=== PATIENT | female | born 1965 | race Caucasian/White ===

== ENCOUNTER → 2018-07-25 | Outpatient (CLI) | payer BC, OTHER ==
[~2018-07-25] MED LIST: ACET-2151 PO; ACHYD1T PO; LSNP10T PO; MTF500T PO; PRV20T PO
--- NOTE | 2018-07-25 17:28 | Diagnostic Imaging Report ---
INDICATION: Screening The current study was also evaluated with a Computer Aided Detection (CAD) system. 3-D Tomographic imaging was also performed. COMPARISON with 11/11/2015, 07/12/2014 and 04/13/2012. FINDINGS: The fibroglandular tissue is heterogeneously dense bilaterally. There are scattered benign type calcifications. There is no dominant mass, spiculated lesion or suspicious calcification identified. The skin, nipples and axillae are unremarkable. IMPRESSION: Category 2 benign. ACR BI-RADS Category 2: Benign findings. Result letter will be mailed to the patient. Note: At least 10% of breast cancer is not imaged by mammography. Dictated by: Dictated on workstation # [id number]
== END ==
LOC: RAD 14:56
PROVIDERS: ATTEND Family Medicine
DX: Z12.31 Encounter for screening mammogram for malignant neoplasm of breast (principal)
CPT/HCPCS: 77067

== ENCOUNTER → 2019-05-24 | Outpatient (CLI) | payer OTHER ==
--- NOTE | 2019-05-24 11:21 | Diagnostic Imaging Report ---
PROCEDURE: US Hepatic (Liver). TECHNIQUE: Multiple real-time grayscale images were obtained over the right upper quadrant in various projections. INDICATION: Abdominal pain, diarrhea. COMPARISON: None available. FINDINGS: The liver is enlarged measuring 25 cm in length. It has diffuse increased echogenicity, indicative of hepatic steatosis. No nodularity to the liver surface is appreciated. No focal hepatic lesion is seen, though assessment is mildly limited due to poor sound penetration from hepatic steatosis. Gallbladder is filled with a small amount of layering sludge present. No shadowing gallstones, pericholecystic fluid, or gallbladder wall thickening. The common bile duct measures up to 0.9 cm in diameter. No intrahepatic biliary dilation. The visualized portions of the pancreas are normal. Portions of the head and tail are obscured by overlying bowel gas. The right kidney is normal in size. No hydronephrosis, shadowing calculi, or suspicious mass lesion. IMPRESSION: 1. Hepatomegaly with diffuse hepatic steatosis. 2. A small amount of gallbladder sludge is present. No features of acute cholecystitis. 3. The common bile duct is upper limits of normal in size which could be physiologic for this patient. If patient's laboratory values are suspicious for biliary obstruction, consider MRCP for further characterization. Dictated by: Dictated on workstation # [id number]
== END ==
LOC: RAD 08:05
PROVIDERS: ATTEND Family Medicine
DX: K76.0 Fatty (change of) liver, not elsewhere classified (principal); K82.8 Other specified diseases of gallbladder; R19.7 Diarrhea, unspecified
CPT/HCPCS: 76705

== ENCOUNTER → 2019-06-04 | Outpatient (CLI) | payer OTHER ==
[~2019-06-04] MED LIST changes: +CATHETER FLUSH 10 ML SYR IV PRN; +CNC1KV IM; +FERR-84 PO; +GLIP5TAB13 PO; +INSU100V5 SQ; +LISI10TA2 PO; +METF-399 PO; +PRAV40TA2 PO; +SIMV20TA26 PO
--- NOTE | 2019-06-04 14:42 | Diagnostic Imaging Report ---
INDICATION: Abdominal pain, biliary sludge.. FINDINGS: The patient was administered 5.22 mCi of Tc 99m Choletec and sequential imaging was performed over the right upper abdomen. There is progressive, homogeneous accumulation of radiotracer within the liver parenchyma. There is filling of the bile ducts and subsequent filling of the gallbladder. There is progressive clearance of activity from the liver parenchyma and accumulation of radiotracer within loops of small bowel. The patient was then administered a fatty meal, utilizing 8 ounces of Ensure. The gallbladder ejection fraction was calculated to be approximately less than 1%. (Normal values post fatty meal stimulation are 33% or greater.) IMPRESSION: 1. Hepatobiliary scan demonstrates a patent biliary tree. 2. Abnormal gallbladder ejection fraction. There is essentially no emptying of the gallbladder post stimulation. Dictated by: Dictated on workstation # [id number]
== END ==
LOC: CARD 12:14
PROVIDERS: ATTEND Family Medicine
DX: K83.8 Other specified diseases of biliary tract (principal); R10.9 Unspecified abdominal pain
CPT/HCPCS: 78227

== ENCOUNTER 2019-06-08 06:28 | Outpatient (CLI) | payer OTHER ==
[~2019-06-08] VITALS: Ht 154 cm; Wt 130.0 kg
[~2019-06-08 06:28] MED LIST changes: -CATHETER FLUSH 10 ML SYR IV PRN; -CNC1KV IM; -FERR-84 PO; -GLIP5TAB13 PO; -INSU100V5 SQ; -LISI10TA2 PO; -METF-399 PO; -PRAV40TA2 PO; -SIMV20TA26 PO
[2019-06-08] MEDS ORDERED: FERR-84 PO (12:28)
[2019-06-08] MEDS ORDERED: INSU100V5 SQ (12:28)
[2019-06-08] MEDS ORDERED: METF-399 PO (12:28)
[2019-06-08] MEDS ORDERED: SIMV20TA26 PO (12:28)
[2019-06-08] MEDS ORDERED: LISI10TA2 PO (12:28)
[2019-06-08] MEDS ORDERED: PRAV40TA2 PO (12:28)
[2019-06-08] MEDS ORDERED: GLIP5TAB13 PO (12:28)
[2019-06-08] MEDS ORDERED: CNC1KV IM (12:28)
== END 2019-06-08 12:38 | disposition home or self-care (01) ==
LOC: PREOP 06:28
PROVIDERS: ATTEND Surgery
DX: Z01.818 Encounter for other preprocedural examination (principal)

== ENCOUNTER 2019-06-21 09:05 | Day surgery (SDC) | payer OTHER ==
--- NOTE | 2019-06-07 06:54 | HISTORY AND PHYSICAL ---
DATE OF SERVICE: PROCEDURE DATE: 06/14/2019. ATTENDING PRIMARY CARE PHYSICIAN: Dr. Skye Byrd. HISTORY OF PRESENT ILLNESS: The patient is a 54-year-old female, who was referred over to us for abdominal pain as well as nausea and vomiting. The patient reports this has been going on for approximately a year and believes that this has become progressively worse. She reports that after eating she does usually become nauseous and at times will even throw up. She does report a dull ache to sharp pain in the epigastric region. She does report occasional episodes of heartburn and reflux. She reports she does feel like at times the pain does go through to her back. She also reports episodes of diarrhea. She reports that her symptoms usually occur with most foods and has not found any specific foods that trigger her symptoms. She was seen by her primary care physician where an ultrasound was performed, which did show a small amount of a gallbladder sludge; however, no acute cholecystitis. She then underwent a HIDA scan, which did show a gallbladder ejection fraction of 1% consistent with a biliary dyskinesia. PAST MEDICAL HISTORY: Morbid obesity, type 2 diabetes, hypertension, hypercholesterolemia, iron deficiency anemia and vitamin B12 deficiency. PAST SURGICAL HISTORY: in 1993, laparoscopic Olivia-en-Y gastric bypass around 2005 and D and C around 2014. ALLERGIES: PENICILLIN. MEDICATIONS: Glipizide 10 mg, metformin 1000 mg, lisinopril 10 mg, pravastatin 40 mg, simvastatin 20 mg, ferrous sulfate 325 mg, Levemir 20 units and B12 injection. SOCIAL HISTORY: Previous smoker, half pack per day for 16 years, quit in 2000. Negative for alcohol. FAMILY HISTORY: Mother, uterine cancer diagnosed around 63 years of age, diabetes and hypertension. Father hypertension. Brother x2 stroke and hypertension. Child, hypertension. Paternal grandmother, stroke. Maternal grandmother, myocardial infarction. REVIEW OF SYSTEMS: A well-nourished female, in no acute distress. She is not experiencing any shortness of breath or difficulty breathing. No chest pain, palpitations or diaphoresis. She does report episodes of nausea and vomiting as well as epigastric abdominal pain. She does report episodes of diarrhea, but no constipation. No red blood per rectum. No dark tarry stools. No fever or chills. No recent inadvertent weight loss. All other review of systems are negative. PHYSICAL EXAMINATION: VITAL SIGNS: Blood pressure is 169/87. Current weight is 287.3 pounds at 5 feet 2 inches. CHEST: Clear. Good breath sounds bilaterally. HEART: Regular, no murmurs. EXTREMITIES: No lower extremity edema. Negative Homans sign. HEENT: No scleral icterus. NECK: No cervical lymphadenopathy. ABDOMEN: Soft and nondistended. There is some tenderness with deep palpation in the epigastric region. No palpable masses. No organomegaly. SKIN: Warm, dry and pink. NEUROLOGIC: Awake, alert and oriented x3. ASSESSMENT AND PLAN: A 54-year-old female with a symptomatic biliary dyskinesia. At this time, I will recommend proceeding with a laparoscopic cholecystectomy. The risks and benefits of the procedure as well as the procedure and home care instructions were explained to the patient. The patient verbalized understanding of the instructions and agrees to this plan. At this time, I will proceed with scheduling the patient for a laparoscopic cholecystectomy. Job ID: [id number] DocumentID: [id number] Dictated Date: 06/06/2019 09:07:28 Marine Oiler Date: 06/06/2019 09:21:28 Dictated By: MEGHA LOYA APRN
[~2019-06-21] VITALS: Ht 154 cm; Wt 130.0 kg
[2019-06-21] VITALS (12 sets, daily range): BP systolic 142–190; BP diastolic 67–99
[~2019-06-21 09:05] MED LIST changes: +CNC1KV IM; +FERR-84 PO; +GLIP5TAB13 PO; +INSU100V5 SQ; +LISI10TA2 PO; +METF-399 PO; +PRAV40TA2 PO; +SIMV20TA26 PO
--- NOTE | 2019-06-21 09:26 | Progress Note-Pre Operative ---
Pre-Operative Progress Note H&P Reviewed The H&P was reviewed, patient examined and no changes noted. Date Seen by Provider: Jun 21, 2019 Time Seen by Provider: 09:25 Date H&P Reviewed: Jun 21, 2019 Time H&P Reviewed: 09:20 Pre-Operative Diagnosis: Symptomatic Biliary Dyskinesia MEGHA LOYA APRN Jun 21, 2019 09:26
[2019-06-21] MEDS ORDERED: HYDR-4227 PO (09:28)
--- NOTE | 2019-06-21 09:29 | Discharge Inst-Surgical ---
D/C Lap Instructions-KIDO Reconcile Patient Problems Problems Reviewed?: Yes New, Converted, or Re-Newed RX: RX on Chart Follow Up Appt in 2 weeks Activity as tolerated No driving for 24 hours No driving while on pain medications Incentive Spirometry use every 2 hours while awake Regular Diet Symptoms to Report: Fever over 101 degree F, Nausea/Vomiting Infection Signs and Symptoms to report: Increased redness, Foul odor of wound, Increased drainage Bathing instructions: May shower Operative Area Clean/Dry; Keep incision clean/dry If any problems/questions: Contact your physician or go to Emergency Room MEGHA LOYA APRN Jun 21, 2019 09:29
[2019-06-21] MEDS ORDERED: morphine INJ 10 MG/ML 1ML (SYR OR VIAL) IVP PRN (09:30)
[2019-06-21] MEDS ORDERED: oxyCODONE/APAP 5/325MG (PERCOCET 5) TABLET PO PRN (09:30)
[2019-06-21] MEDS ORDERED: ACETAMINOPHEN 325 MG TABLET PO PRN (09:30)
[2019-06-21] MEDS ORDERED: CLINDAMYCIN 600 MG/50 ML IVPB 50 ML IV ONE (09:30)
[2019-06-21] MEDS ORDERED: ONDANSETRON 4 MG/2 ML (SDV) Z0FRAN IVP PRN (09:30)
[2019-06-21 09:58] LABS: BASOPHILS % (AUTO) 1 % (0-10); EOSINOPHILS # (AUTO) 0.2 10^3/uL (0.0-0.3); EOSINOPHILS % (AUTO) 2 % (0-10); HEMATOCRIT 38 % (35-52); LYMPHOCYTES # (AUTO) 2.3 X 10^3 (1.0-4.0); LYMPHOCYTES % (AUTO) 29 % (12-44); MEAN CORPUSCULAR HEMOGLOBIN 26 PG (25-34); MEAN CORPUSCULAR HGB CONC 32 G/DL (32-36); MEAN CORPUSCULAR VOLUME 82 FL (80-99); MEAN PLATELET VOLUME 11.6 FL (7.4-10.4); MONOCYTES # (AUTO) 0.5 X 10^3 (0.0-1.0); MONOCYTES % (AUTO) 7 % (0-12); NEUTROPHILS # (AUTO) 4.9 X 10^3 (1.8-7.8); NEUTROPHILS % (AUTO) 62 % (42-75); PLATELET COUNT 283 10^3/uL (130-400); WHITE BLOOD COUNT 7.8 10^3/uL (4.3-11.0)
[2019-06-21] MEDS ORDERED: SCOPOLAMINE 1.5 MG (TRANSDERM-SCOP) PATCH TOP NR (10:00)
[2019-06-21] MEDS ORDERED: ONDANSETRON 4 MG/2 ML (SDV) Z0FRAN IV NR (10:00)
[2019-06-21] MEDS ORDERED: FAMOTIDINE 20MG/2ML IV (PEPCID) IV NR (10:00)
[2019-06-21] MEDS ORDERED: BUP/EPI 0.5% 1:200,000 (SENSORCAINE) 30 ML VIAL ONE (10:03)
[2019-06-21] MEDS: LACTATED RINGERS 1,000 ML IV PRN ×2 (10:12→12:20)
[2019-06-21] MEDS ORDERED: MIDAZOLAM 2 MG/2 ML (VERSED) VIAL ONE (10:46)
[2019-06-21] MEDS ORDERED: fentaNYL INJECTION 100 MCG/2 ML AMP ONE ×3 (10:46→12:35)
[2019-06-21] MEDS ORDERED: proPOfol 200 MG/20 ML (DIPRIVAN) VIAL IV ONE (12:06)
[2019-06-21] MEDS ORDERED: GLYCOPYRROLATE 0.2 MG/ML (ROBINUL) 2 ML VIAL ONE (12:06)
[2019-06-21] MEDS ORDERED: LIDOCAINE PF 2% 5 ML (XYLOCAINE) VIAL ONE (12:06)
[2019-06-21] MEDS ORDERED: SEVOFLURANE (ULTANE) 15 ML INHAL SOLN ONE ×4 (12:06)
[2019-06-21] MEDS ORDERED: ESMOLOL 100 MG/10 ML (BREVIBLOC) VIAL ONE (12:06)
[2019-06-21] MEDS ORDERED: SUCCINYLCHOLINE INJ 100 MG/5 ML SYR ONE (12:06)
[2019-06-21] MEDS ORDERED: ROCURONIUM 10 MG/ML 5 ML SYRINGE IV ONE (12:06)
[2019-06-21] MEDS ORDERED: ONDANSETRON 4 MG/2 ML (SDV) Z0FRAN ONE (12:06)
[2019-06-21] MEDS ORDERED: NEOSTIGMINE 3 MG/3 ML VIAL ONE (12:06)
--- NOTE | 2019-06-21 12:33 | Progress Note-Post Operative ---
Post-Operative Progess Note Surgeon (s)/Applications Programmer Analyst (s) Surgeon DEMOND LAM MD Applications Programmer Analyst: poonam gurrola HOUSING GRANT ANALYST Pre-Operative Diagnosis Symptomatic Biliary Dyskinesia Post-Operative Diagnosis symptomatic chronic calculous cholecystitis. Procedure & Operative Findings Date of Procedure 06/21/19 Procedure Performed/Findings laparoscopic cholecystectomy. Anesthesia Type get Estimated Blood Loss Estimated blood loss (mL): minimal Specimens/Packing Specimens Removed gallbladder DEMOND LAM MD Jun 21, 2019 12:33
[2019-06-21] MEDS ORDERED: HYDROmorphone 2 MG/ML VIAL (DILAUDID) ONE (12:50)
--- NOTE | 2019-06-21 12:56 | Anesthesia-General Post-Op ---
General Patient Condition Mental Status/LOC: Same as Preop Cardiovascular: Satisfactory Nausea/Vomiting: Present (TREATED IN PACU) Respiratory: Satisfactory Pain: Controlled Complications: Absent Post Op Complications Complications None Follow Up Care/Instructions Patient Instructions None needed. Anesthesia/Patient Condition Patient Condition Patient is doing well, no complaints, stable vital signs, no apparent adverse anesthesia problems. No complications reported per nursing. GENNY OZUNA CRNA Jun 21, 2019 12:56
[2019-06-21] MEDS ORDERED: fentaNYL INJECTION 100 MCG/2 ML AMP IVP ONE (13:00)
[2019-06-21] MEDS ORDERED: HYDROmorphone 2 MG/ML VIAL (DILAUDID) IV ONE (13:00)
[2019-06-21] MEDS ORDERED: morphine INJ 10 MG/ML 1ML (SYR OR VIAL) IVP ONE (13:00)
[2019-06-21] MEDS: ONDANSETRON 4 MG/2 ML (SDV) Z0FRAN IVP PRN ×2 (13:01→13:21)
[2019-06-21] MEDS ORDERED: PROMETHAZINE INJ 25 MG/ML (PHENERGAN) AMP ONE (13:28)
--- NOTE | 2019-06-21 14:14 | OPERATIVE REPORT ---
DATE OF SERVICE: 06/21/2019 ATTENDING PRIMARY CARE PHYSICIAN: Skye Byrd MD PREOPERATIVE DIAGNOSIS: Symptomatic chronic calculous cholecystitis. POSTOPERATIVE DIAGNOSIS: Symptomatic chronic calculous cholecystitis. PROCEDURE: Laparoscopic cholecystectomy. SURGEON: Dmeond Lam MD GAS MAKER HELPER: Keyur Appiah APRN ANESTHESIA: General endotracheal. ESTIMATED BLOOD LOSS: Minimal. FINDINGS: Hepatomegaly with multiple gallstones and the distended gallbladder as well as chronic gallbladder wall thickening. DISPOSITION: The patient tolerated the procedure well. INDICATIONS: The patient is a 54-year-old female, who has had pain in the right upper abdominal quadrant with nausea and vomiting for greater than 1 year; however, this has become much more significant as well as more severe. An ultrasound was performed, which showed gallbladder sludge versus small stones and she also underwent a HIDA scan, which showed a severely low ejection fraction of 1%. DESCRIPTION OF PROCEDURE: The patient was brought to the operating room, laid supine on the table. After adequate IV pain and sedative medications and general endotracheal intubation, the abdomen was prepped and draped in standard surgical fashion. A 0.5% Marcaine with epinephrine was then used to anesthetize the overlying skin in the left upper abdominal quadrant and a transverse skin incision made using 15 blade. An 0 silk suture was applied to the medial aspect of incision for retraction and a Veress needle inserted with a low opening pressure of 0 mmHg. The abdomen was insufflated to 15 mmHg pressure. The Veress needle removed and a 5 mm XL trocar placed followed by a 5 mm 45-degree angle laparoscope visualizing the peritoneal cavity. A 4-quadrant abdominal exploration was performed. There were some omental adhesions towards the abdominal wall from her previous abdominal surgeries. Under direct visualization, we then proceeded to place a 10 mm supraumbilical port after the skin and peritoneal lining were anesthetized using 0.5% Marcaine with epinephrine and a transverse skin incision made using a 15 blade. In a similar fashion, a right upper abdominal quadrant 5 mm port was placed. A distended gallbladder with chronic gallbladder wall thickening identified. This was initially decompressed with a laparoscopic needle and suction. The patient was then placed in steep reverse Trendelenburg position as well as plane right side up, left side down. The fundus of the gallbladder was then retracted anteriorly and superiorly. The hepatoduodenal ligament was then opened using cautery as well as blunt dissection on the hook instrument. The entire critical view of safety was identified including the cystic duct and artery as the only two structures going to gallbladder, the triangle of Calot as well as the cystic plate behind the proximal gallbladder. A timeout was then taken, and the cystic duct and artery were then clipped proximally, distally and cut with EndoShears. The gallbladder was then dissected off the liver bed using cautery on hook instrument with visualization of good hemostasis as well as no leaking ducts of Luschka. The gallbladder was removed through the 10 mm port site using an EndoCatch bag. The 10 mm port site fascia and peritoneum were then closed under direct visualization using a Ace-Alan device and 0 Vicryl suture. The abdomen was desufflated and remaining ports removed. All skin incisions were closed using 4-0 Monocryl running subcuticular sutures. Wounds were then cleaned and covered with Dermabond. The patient tolerated the procedure well. We will start IV normal pain medication as well as a clear liquid diet. When she is tolerating clears, has good pain control with oral pain medication and is ambulating well, we will discharge her home. She will be instructed to do no heavy lifting or exertion for the next two weeks. Job ID: [id number] DocumentID: [id number] Dictated Date: 06/21/2019 12:37:59 Life Insurance Underwriter Date: 06/21/2019 14:13:12 Dictated By: DEMOND LAM MD
[2019-06-21] MEDS ORDERED: METOCLOPRAMIDE INJ 10 MG/2 ML (REGLAN) ONE (14:37)
[2019-06-21] MEDS ORDERED: METOCLOPRAMIDE INJ 10 MG/2 ML (REGLAN) IVP ONE (14:45)
[2019-06-24] MEDS ORDERED: SCOPOLAMINE PATCH REMOVAL TP SCH (10:00)
== END 2019-06-21 15:15 | disposition home or self-care (01) ==
LOC: SDC 09:05
PROVIDERS: ATTEND Surgery
DX: K80.12 Calculus of gallbladder with acute and chronic cholecystitis without obstruction (principal); Z11.2 Encounter for screening for other bacterial diseases; E11.9 Type 2 diabetes mellitus without complications; I10 Essential (primary) hypertension; E78.00 Pure hypercholesterolemia, unspecified; E78.5 Hyperlipidemia, unspecified; D50.9 Iron deficiency anemia, unspecified; E53.9 Vitamin B deficiency, unspecified; G47.33 Obstructive sleep apnea (adult) (pediatric); E66.01 Morbid (severe) obesity due to excess calories; Z98.84 Bariatric surgery status; Z79.4 Long term (current) use of insulin; Z79.899 Other long term (current) drug therapy; Z87.891 Personal history of nicotine dependence; Z68.43 Body mass index [BMI] 50.0-59.9, adult
CPT/HCPCS: 36415; 82962; 84703; 85025; 87081; 88304; 94664

== ENCOUNTER → 2020-08-19 | Outpatient (CLI) | payer OTHER ==
[~2020-08-19] MED LIST changes: +HYDR-4227 PO; -LISI10TA2 PO; +LISI10TA25 PO
--- NOTE | 2020-08-19 12:50 | Diagnostic Imaging Report ---
INDICATION: Routine screening. Comparison is made with prior mammogram 07/25/2018 and 11/11/2015. 2-D and 3-D bilateral screening mammography was performed with CAD. Scattered fibroglandular densities are identified bilaterally. There are benign appearing calcifications in both breasts. No spiculated mass or malignant appearing microcalcifications are seen. Axillae are unremarkable. IMPRESSION: BI-RADS Category 2 No mammographic features suspicious for malignancy are identified. ACR BI-RADS Category 2: Benign findings. Result letter will be mailed to the patient. Note: At least 10% of breast cancer is not imaged by mammography. Dictated by: Dictated on workstation # [id number]
== END ==
LOC: RAD 09:57
PROVIDERS: ATTEND Family Medicine
DX: Z12.31 Encounter for screening mammogram for malignant neoplasm of breast (principal)
CPT/HCPCS: 77063; 77067

== ENCOUNTER 2021-04-20 05:31 | Outpatient (CLI) | payer OTHER ==
[~2021-04-20] VITALS: Ht 61 cm; Wt 112.0 kg
[2021-04-23] MEDS ORDERED: EMPA25TA PO (15:12)
[2021-04-23] MEDS ORDERED: SITA100T12 PO (15:12)
== END 2021-04-24 16:50 | disposition home or self-care (01) ==
LOC: PREOP 05:31
PROVIDERS: ATTEND Specialist
DX: Z01.818 Encounter for other preprocedural examination (principal)

== ENCOUNTER 2021-04-27 05:59 | Day surgery (SDC) | payer OTHER ==
[~2021-04-27] VITALS: Ht 61 cm; Wt 112.0 kg
[~2021-04-27 05:59] MED LIST changes: +EMPA25TA PO; +SITA100T12 PO
[2021-04-27] MEDS ORDERED: TIMOLOL MALEATE 0.5% 5 ML (TIMOPTIC) BTL OU PRN (06:15)
[2021-04-27] MEDS ORDERED: LIDOCAINE PF 1% 2 ML VIAL IR PRN (06:15)
[2021-04-27] MEDS ORDERED: POVIDONE (BETADINE) OPHTH SOLN 5% 30 ML OP ONE (06:15)
[2021-04-27] MEDS ORDERED: MOXIFLOXACIN OPHTH SOLN 5 MG/ML 0.3 ML SYRINGE OP ONE (06:15)
[2021-04-27 06:20] VITALS: BP 147/71
[2021-04-27] MEDS: TETRACAINE 0.5% OPHTH SOLN 4 ML BTL (SINGLE DOSE ONLY) OU PRN ×4 (06:27→06:43)
[2021-04-27] MEDS: PHENYLEPHRINE 10% OPHTH (NEO-SYN) 5 ML BTL OU SCH ×3 (06:33→06:43)
[2021-04-27] MEDS: TROPICAMIDE 1% OPH SOLN (MYDRIACYL) 15 ML BTL OP SCH ×3 (06:33→06:43)
[2021-04-27] MEDS ORDERED: MIDAZOLAM 2 MG/2 ML (VERSED) VIAL ONE (07:26)
--- NOTE | 2021-04-27 07:29 | Ophthalmologist Pre-Op Note ---
Pre-Operative Progress Note H&P Reviewed The H&P was reviewed, patient examined and no changes noted. Date H&P Reviewed: Apr 27, 2021 Time H&P Reviewed: 07:22 Pre-Op Dx Cataract, Right Eye JAMEL SIMENTAL MD Apr 27, 2021 07:29
--- NOTE | 2021-04-27 07:44 | Ophthalmology Operative Report ---
Cataract removal/placement IOL PREOPERATIVE DIAGNOSIS: Cataract Right Eye POSTOPERATIVE DIAGNOSIS: Cataract Right Eye PROCEDURE: Cataract removal and placement of posterior chamber implant, right eye SURGEON: Thomas Simental ANESTHESIA: Topical with sedation COMPLICATIONS: None ESTIMATED BLOOD LOSS: Minimal DESCRIPTION OF PROCEDURE: After proper informed consent was obtained, the patient, a 55 female, was taken to the Operating Room and the right eye was anesthetized with tetracaine. The right eye was then prepped and draped in the usual manner. A wire lid speculum was placed. A paracentesis was made at the left hand position. Preservative free lidocaine was injected into the anterior chamber followed by viscoelastic. A clear corneal incision was made in the temporal position. A capsulorrhexis was preformed and the central nuclear and cortical material were removed. The posterior capsule was polished and Scot 20.0 AU00T0 IOL was placed into the capsular bag. The residual viscoelastic was aspirated and balanced saline solution was injected into the anterior chamber. Moxifloxacin was injected into the anterior chamber. The wound was checked and found to be water tight. The patient tolerated the procedure well without complications. THOMAS SIMENTAL MD Apr 27, 2021 07:44
[2021-04-27 07:52] VITALS: BP 171/75
[2021-04-27] MEDS ORDERED: acetaZOLAMIDE ER 500 MG CAP (DIAMOX SEQUELS) PO ONE (09:15)
--- NOTE | 2021-04-27 12:44 | Anesthesia-General Post-Op ---
MAC Patient Condition Mental Status/LOC: Same as Preop Cardiovascular: Satisfactory Nausea/Vomiting: Absent Respiratory: Satisfactory Pain: Controlled Complications: Absent Post Op Complications Complications None Follow Up Care/Instructions Patient Instructions None needed. Anesthesiology Discharge Order Discharge Order Patient was doing well this morning after the procedure, no complaints, stable vital signs, no apparent adverse anesthesia problems. KYREE BURT DO Apr 27, 2021 12:44
== END 2021-04-27 07:55 ==
LOC: SDC 05:59
PROVIDERS: ATTEND Specialist
DX: E11.36 Type 2 diabetes mellitus with diabetic cataract (principal); H25.11 Age-related nuclear cataract, right eye; I10 Essential (primary) hypertension; G47.33 Obstructive sleep apnea (adult) (pediatric); J45.909 Unspecified asthma, uncomplicated; D64.9 Anemia, unspecified; E78.00 Pure hypercholesterolemia, unspecified; Z79.899 Other long term (current) drug therapy; Z79.84 Long term (current) use of oral hypoglycemic drugs
CPT/HCPCS: 66984; 82947; V2632

== ENCOUNTER 2021-05-15 06:00 | Day surgery (SDC) | payer OTHER ==
[~2021-05-15] VITALS: Ht 154 cm; Wt 112.0 kg
[2021-05-15] MEDS: TETRACAINE 0.5% OPHTH SOLN 4 ML BTL (SINGLE DOSE ONLY) OU PRN ×4 (06:28→06:51)
[2021-05-15] MEDS ORDERED: LIDOCAINE PF 1% 2 ML VIAL IR PRN (06:30)
[2021-05-15] MEDS ORDERED: TIMOLOL MALEATE 0.5% 5 ML (TIMOPTIC) BTL OU PRN (06:30)
[2021-05-15] MEDS ORDERED: POVIDONE (BETADINE) OPHTH SOLN 5% 30 ML OP ONE (06:30)
[2021-05-15] MEDS ORDERED: MOXIFLOXACIN OPHTH SOLN 5 MG/ML 0.3 ML SYRINGE OP ONE (06:30)
[2021-05-15 06:36] VITALS: BP 124/64
[2021-05-15] MEDS: TROPICAMIDE 1% OPH SOLN (MYDRIACYL) 15 ML BTL OP SCH ×3 (06:40→06:51)
[2021-05-15] MEDS: PHENYLEPHRINE 10% OPHTH (NEO-SYN) 5 ML BTL OU SCH ×3 (06:40→06:52)
[2021-05-15] MEDS ORDERED: MIDAZOLAM 2 MG/2 ML (VERSED) VIAL ONE (07:11)
--- NOTE | 2021-05-15 07:25 | Ophthalmologist Pre-Op Note ---
Pre-Operative Progress Note H&P Reviewed The H&P was reviewed, patient examined and no changes noted. Date H&P Reviewed: May 15, 2021 Time H&P Reviewed: 07:24 Pre-Op Dx Cataract, Left Eye JAMEL SIMENTAL MD May 15, 2021 07:24
--- NOTE | 2021-05-15 07:44 | Ophthalmology Operative Report ---
Cataract removal/placement IOL PREOPERATIVE DIAGNOSIS: Cataract Left Eye POSTOPERATIVE DIAGNOSIS: Cataract Left Eye PROCEDURE: Cataract removal and placement of posterior chamber implant, left eye SURGEON: Thomas Simental ANESTHESIA: Topical with sedation COMPLICATIONS: None ESTIMATED BLOOD LOSS: Minimal DESCRIPTION OF PROCEDURE: After proper informed consent was obtained, the patient, a 55 female, was taken to the Operating Room and the left eye was anesthetized with tetracaine. The left eye was then prepped and draped in the usual manner. A wire lid speculum was placed. A paracentesis was made at the left hand position. Preservative free lidocaine was injected into the anterior chamber followed by viscoelastic. A clear corneal incision was made in the temporal position. A capsulorrhexis was preformed and the central nuclear and cortical material were removed. The posterior capsule was polished and an Scot 20.5 AU00T0 was placed into the capsular bag. The residual viscoelastic was aspirated and balanced saline solution was injected into the anterior chamber. Moxifloxacin was injected into the anterior chamber. The wound was checked and found to be water tight. The patient tolerated the procedure well without complications. THOMAS SIMENTAL MD May 15, 2021 07:44
[2021-05-15 07:50] VITALS: BP 142/76
[2021-05-15] MEDS ORDERED: acetaZOLAMIDE ER 500 MG CAP (DIAMOX SEQUELS) PO ONE (09:15)
--- NOTE | 2021-05-15 10:43 | Anesthesia-General Post-Op ---
MAC Patient Condition Mental Status/LOC: Same as Preop Cardiovascular: Satisfactory Nausea/Vomiting: Absent Respiratory: Satisfactory Pain: Controlled Complications: Absent Post Op Complications Complications None Follow Up Care/Instructions Patient Instructions None needed. Anesthesiology Discharge Order Discharge Order Patient is doing well, no complaints, stable vital signs, no apparent adverse anesthesia problems. No complications reported per nursing. HEYDI FRANCO CRNA May 15, 2021 10:43
== END 2021-05-15 07:50 | disposition home or self-care (01) ==
LOC: SDC 06:00
PROVIDERS: ATTEND Specialist
DX: E11.36 Type 2 diabetes mellitus with diabetic cataract (principal); H25.9 Unspecified age-related cataract; I10 Essential (primary) hypertension; E78.00 Pure hypercholesterolemia, unspecified; J45.909 Unspecified asthma, uncomplicated; G47.33 Obstructive sleep apnea (adult) (pediatric); Z79.4 Long term (current) use of insulin; Z79.899 Other long term (current) drug therapy; Z79.84 Long term (current) use of oral hypoglycemic drugs
CPT/HCPCS: 66984; 82947; V2632